=== PATIENT | male | born 1950 | race Caucasian/White ===

== ENCOUNTER 2024-03-11 13:21 | Emergency (ER) | payer MEDICARE, OTHER, SELFPAY ==
[2024-03-11] VITALS (10 sets, daily range): BP systolic 150–183; BP diastolic 56–66
--- NOTE | 2024-03-11 15:29 | ED.GENMED ---
History of Present Illness
General
Chief Complaint: Abdominal Symptoms
Source: patient
Exam Limitations: none
Time Seen by Provider: 03/11/24 15:25
Nursing documentation reviewed up to this point in time: agreed with
Travel History
Have you had any contact with someone who has COVID-19?: No
Do you have any symptoms of coronavirus? Fever > 100 degrees, chills, cough, shortness of breath, sore throat, loss of taste or smell, muscle aches, or headache?: No
History of Present Illness
History of Present Illness:
73-year-old male with past medical history of prostate cancer status post bladder and prostate resection, chronic kidney disease, hypertension, hyperlipidemia, GERD who presents emergency department today with upper abdominal pain for the past 2
days. Patient states that this started in the morning and it came on suddenly and he started to have a lot of associated nausea and vomiting. Patient also has had various episodes of diarrhea. Patient denies any fevers or chills, chest pain,
shortness of breath, dizziness, melena, hematemesis. Patient denies any recent hospitalizations. Patient states that a few weeks ago, he had stents placed in his kidneys.
Past History
Past History
ED Past Medical History: Cancer (Prostate cancer), HTN, Hypercholesterolemia and Other
ED Past Surgical History: Urological and Other
Social History
Tobacco: Former smoker
Alcohol: None
Drug: Marijuana
Personal:
Living: with family
Employment: Employed
Family History
Family History: Unable to obtain
Review of Systems
Review of Systems
All Other Systems: ROS reviewed and negative except as documented in HPI and ROS
Phy Exam
Physical Exam
Physical Exam:
General: Patient is well appearing and in no acute distress; non-toxic
Skin: Warm and dry, no rashes or lesions
Head: Normocephalic, atraumatic
Eyes: Sclera non-icteric. EOMs intact.
Cardiac: Regular rate
Peripheral Vascular: No lower extremity swelling, 2+ dorsalis pedis pulses b/l
Pulm: Normal respiratory effort
Abdomen: mild epigastric tenderness to palpation, reducible non-tender umbilical hernia, normoactive bowel sounds
Neuro: CN II-XII intact, no focal neurologic deficits.
Psychiatric: Appropriate mood and affect.
Course
Orders/Labs/Results
Orders:
Orders
03/11/24 15:14
Complete Blood Count/With Diff Urgent
Comprehensive Metabolic Panel Urgent
Lipase Urgent
03/11/24 15:43
HYDROmorphone [Dilaudid] 0.5 mg IV NOW STA
Ondansetron Injectable [Zofran] 4 mg IV NOW STA
03/11/24 16:01
CT Abd/pel Without Iv Or Oral Urgent
Comment:
Reason For Exam: periumbilical pain
03/11/24 19:41
HYDROmorphone [Dilaudid] 0.5 mg IV NOW STA
Abnormal Lab Results
03/11/24
15:14
RBC 3.78 L 10^6/uL
(4.70-6.10)
Hgb 10.4 L g/dL
(13.0-18.0)
Hct 30.3 L %
(39.0-52.0)
Plt Count 415 H 10^3/uL
(130-400)
MPV 11.0 H fL
(7.4-10.4)
Absolute Neuts (auto) 8.2 H 10^3/uL
(1.4-6.5)
Absolute Lymphs (auto) 0.8 L 10^3/uL
(1.2-3.4)
Absolute Monos (auto) 0.7 H 10^3/uL
(0.1-0.6)
Neutrophils % 84.4 H %
(42.2-75.2)
Lymphocytes % 8.0 L %
(20.5-51.1)
Carbon Dioxide 21 L mmol/L
(22-30)
BUN 46 H mg/dl
(9-20)
Creatinine 3.5 H mg/dL
(0.7-1.3)
Glucose 114 H mg/dl
(70-99)
Calcium 10.4 H mg/dl
(8.4-10.2)
Lipase 329 H U/L
(23-300)
03/11/24 15:14
03/11/24 15:14
Vital Signs
Initial and Last Documented VS:
Initial Vital Signs
Temp Pulse Resp BP Pulse Ox
97.4 F 51 18 183/64 99
03/11/24 13:23 03/11/24 13:23 03/11/24 13:23 03/11/24 13:23 03/11/24 13:23
Last Documented Vital Signs
Temp Pulse Resp BP Pulse Ox
97.4 F 40 15 160/58 99
03/11/24 13:23 03/11/24 20:45 03/11/24 20:45 03/11/24 20:00 03/11/24 13:23
MDM/Problems Addressed
Differential Diagnosis Includes:
ddx include gastritis, appendicitis, pyelonephritis, pancreatitis, small bowel obstruction
MDM/Problems Addressed:
abdominal pain
Chronic conditions affecting care: HTN, Psychiatric illness, Cancer and Other (GERD, bilateral renal stents)
*Pulse Oximetry
Patient hypoxic: no
*Critical Care Note
Total Time (30-74mins, 75-104mins- exclusive of procedures): Not Applicable
Data Reviewed
Review of Other/Old Records Reveals: Records (reviewed previous ER physician documentation) and Discharge Summary (reviewed most recent discharge summary)
Source: patient and records
Update Note
Update Note:
Care was transferred to my attending Dr. Cui at 7:30 pm. Please refer to attending addendum.
ED Attending Note
-
Portions of this chart may have been created with voice recognition software.� Occasional wrong word or��sound alike� substitutions may have occurred due to the inherent limitations of voice recognition software.
Discharge Plan
Departure
Patient Disposition: Home (Routine Discharge)
Date of Disposition: 03/11/24
Time of Disposition: 22:00
Patient with high blood pressure during this ER visit?: Yes
Discharge Problem:
Ileus, Abdominal wall hernia
Instructions: Postoperative ileus, Abdominal Hernia
Prescriptions:
No Action
trazodone 100 MG tablet
100 mg PO HS
pantoprazole 40 MG tablet,delayed release (DR/EC)
40 mg PO HS
atorvastatin 40 MG tablet
40 mg PO HS
oxycodone-acetaminophen 5-325 mg tablet
1 tab PO Q8H PRN (Reason: moderate pain)
Patient Comments:
09/17/2022: last filled 08/19/22, 90 tabs for 30 days from [facility]
melatonin 10 mg Tablet
10 mg PO HS
hydralazine 100 mg tablet
100 mg PO TID
oxybutynin chloride 10 mg tablet extended release 24hr
10 mg PO HS
amlodipine 10 MG tablet
10 mg PO HS
Otc Potassium Chloride
1 tab PO UD
Patient Comments:
11/13/22 Per patient he was told his potassium was low so he took for 2 or 3 doses last week. He would take once this week but has not taken it yet
Referrals:
Oriana Davila DO [Family Provider] -
Interventions
Interventions:
*Risk Screen - Suicide Last Done: 03/11/24 13:23
*General Assessment Last Done: 03/11/24 13:23
*Neglect/Abuse Screening Last Done: 03/11/24 13:23
ED- Fall Risk Assessment Last Done: 03/11/24 15:31
*ED COVID-19 Vaccine History Last Done: 03/11/24 13:23
ZI-Htnpdc-Hrxuhyryaw Assessment Last Done: 03/11/24 15:31
Discharge Date and Time
Print Language: PERSIAN
[2024-03-11 15:45] LABS: % Basophils 0.3 % (0-2); % Immature Granulocytes 0.4 % (0-0.5); % Monocytes 6.9 % (1.7-9.3); % Neutrophils 84.4 % (42.2-75.2); Absolute Lymphocytes 0.8 10^3/uL (1.2-3.4); Absolute Monocytes 0.7 10^3/uL (0.1-0.6); Absolute Neutrophils 8.2 10^3/uL (1.4-6.5); Hematocrit 30.3 % (39.0-52.0); Hemoglobin 10.4 g/dL (13.0-18.0); Mean Corp Hgb Conc. 34.3 g/dL (33.0-37.0); Mean Corpuscular Hgb 27.5 pg (27.0-31.0); Mean Corpuscular Volume 80.2 fL (80.0-94.0); Nucleated Red Blood Cells % 0 % (-); Platelet Count 415 10^3/uL (130-400); Red Blood Cell Count 3.78 10^6/uL (4.70-6.10); Red Cell Dist. Width 13.5 % (11.5-14.5); White Blood Cell Count 9.7 10^3/uL (4.8-10.8)
[2024-03-11 15:57] LABS: ALT (SGPT) 15 U/L (0-50); AST (SGOT) 19 U/L (17-59); Albumin 4.7 g/dl (3.5-5.0); Alkaline Phosphatase 103 U/L (38-126); Blood Urea Nitrogen 46 mg/dl (9-20); Calcium 10.4 mg/dl (8.4-10.2); Carbon Dioxide 21 mmol/L (22-30); Chloride 107 mmol/L (98-107); Glucose 114 mg/dl (70-99); Lipase 329 U/L (23-300); Potassium 3.6 mmol/L (3.5-5.1); Sodium 139 mmol/L (135-145); Total Bilirubin 0.8 mg/dl (0.2-1.3); Total Protein 7.3 g/dl (6.3-8.2); eGFR 17.78
[2024-03-11] MEDS: ZOFRAN 4 MG IV (16:22)
[2024-03-11] MEDS: DILAUDID 0.5 MG IV ×2 (16:23→19:49)
--- NOTE | 2024-03-11 21:57 | ED.ADDNOTE ---
ED Addendum
ED Addendum
ED Addendum Note:
Patient seen primarily by the PA. I evaluated the patient independently. His abdomen is soft and he has a reducible hernias that are nontender without skin changes. CT scan otherwise is reassuring. He notes that he has been taking oxycodone over
the past month for recent back surgery that he has had. Endorses constipation symptoms consistent with ileus. I instructed him that this may be contributing to his pain. He is otherwise very well-appearing and nontoxic at this time. Recommend
him to start a bowel regimen with daily Colace and MiraLAX until stools are soft.
== END 2024-03-11 22:40 | disposition home or self-care (01) ==
LOC: EMR 13:21
PROVIDERS: Emergency Medicine; EMERGENCY PHYSICIAN Emergency Medicine; FAMILY PHYSICIAN Internal Medicine
DX: K56.7 Ileus, unspecified (principal); K43.9 Ventral hernia without obstruction or gangrene; R11.2 Nausea with vomiting, unspecified; R19.7 Diarrhea, unspecified; K21.9 Gastro-esophageal reflux disease without esophagitis; I12.9 Hypertensive chronic kidney disease with stage 1 through stage 4 chronic kidney disease, or unspecified chronic kidney disease; N18.9 Chronic kidney disease, unspecified; E78.00 Pure hypercholesterolemia, unspecified; M19.90 Unspecified osteoarthritis, unspecified site; B02.9 Zoster without complications; F41.9 Anxiety disorder, unspecified; F32.A Depression, unspecified; Z85.46 Personal history of malignant neoplasm of prostate; Z87.891 Personal history of nicotine dependence; Z90.79 Acquired absence of other genital organ(s)
CPT/HCPCS: 99284; 96374; 96375; 96376; 74176; 80053; 83690; 85025

== ENCOUNTER 2024-12-08 12:43 | Emergency (ER) | payer MEDICARE, OTHER, SELFPAY ==
[2024-12-08 12:53] VITALS: BP 148/75
--- NOTE | 2024-12-08 12:54 | ED.GENMED ---
ED Provider Triage
<Alethea Lugo MD, Resident - Last Filed: 12/08/24 13:06>
-
Patient seen by provider in Triage?: Seen in Triage
74yo M recently discharged from [facility] 12/06/24 after having double nephrostomy and removal of artificial urinary sphincter and stents, who presents for abdominal pain and nausea/vomiting/diarrhea. The pain started yesterday during the day, is all
over his abdomen and radiates to back, and has been getting worse-- currently rated 7/10 on pain scale. His nausea/vomiting/diarrhea started overnight-- last able to hold down food/water yesterday, last bowel movement around 3am. He has a brandon
catheter, denies changes in quality/quantity of urine. In triage, appears uncomfortable, actively vomiting bilious emesis, tachypneic.
History of Present Illness
<Alethea Lugo MD, Resident - Last Filed: 12/08/24 13:06>
General
Chief Complaint: Abdominal Symptoms
Time Seen by Provider: 12/08/24 13:30
<Azar Cui MD - Last Filed: 12/08/24 17:35>
History of Present Illness
History of Present Illness:
Patient presents to the emergency department with bilateral back and abdominal pain. He was admitted 2 days ago to [facility] and had bilateral nephrostomy tubes placed. Notes that he also had an artificial urinary sphincter that had to be removed.
He has a Brandon catheter bilateral nephrostomies which have been draining at their baseline. He has not been able to tolerate any of his p.o. pain medications given his vomiting. Denies fevers or chills
Past History
<Alethea Lugo MD, Resident - Last Filed: 12/08/24 13:06>
Past History
ED Past Medical History: Cancer (Prostate cancer), HTN, Hypercholesterolemia and Other
ED Past Surgical History: Urological and Other
Social History
Tobacco: Former smoker
Alcohol: None
Drug: Marijuana
Personal:
Living: with family
Employment: Employed
Family History
Family History: Unable to obtain
Phy Exam
<Azar Cui MD - Last Filed: 12/08/24 17:35>
Physical Exam
Physical Exam:
GENERAL APPEARANCE: Generally ill-appearing, wearing a joyner appears pale
EYES lids/conjunctiva normal
EARS/NOSE/THROAT Mucous membranes moist, uvula midline without oral pharyngeal erythema, exudate or swelling
HEAD/NECK normocephalic atraumatic, neck is supple.
RESPIRATORY respiratory effort normal, speaks in full sentences, no accessory muscle use. Lungs clear to auscultation without rhonchi, wheezes, rales
CARDIAC Regular rate and rhythm, no edema.
ABDOMINAL bilateral nephrostomy sites are clean dry and intact. Incision along lower abdominal wall is clean. He has mild diffuse tenderness. no distension
MUSCLES/EXTREMITIES No abnormal range of motion, no swelling.
SKIN Warm, pink and dry. No rashes
NEUROLOGICAL Speech is clear and appropriate. Normal level of consciousness. 5/5 strength in all extremities.
PSYCH Normal mood and affect. Judgement/competence is appropriate
Course
<Alethea Lugo MD, Resident - Last Filed: 12/08/24 13:06>
Orders/Labs/Results
Orders:
Orders
12/08/24 12:54
Ondansetron Injectable [Zofran] 4 mg IV NOW STA
12/08/24 12:56
Abdomen Xray - 1 View [CR Abdomen - 1 View] Urgent
Comment:
Reason For Exam: vomiting, abd pain
12/08/24 12:57
Complete Blood Count/No Diff Urgent
Comprehensive Metabolic Panel Urgent
Lipase Urgent
12/08/24 12:58
HYDROmorphone [Dilaudid] 0.5 mg IV NOW STA
12/08/24 13:55
CT Abd/pel Without Iv Or Oral Urgent
Comment:
Reason For Exam: recent nephrostomy tubes, abd pain
12/08/24 13:56
HYDROmorphone [Dilaudid] 0.5 mg IV NOW STA
12/08/24 14:07
0.9% Sodium Chloride 1000 ml [Nss] 1,000 ml IV BOLUS
12/08/24 14:29
Lactate Level [Lactic Acid] Urgent
Urinalysis Reflex To Culture Urgent
Date Specimen was Collected: 12/08/24
Time Specimen was Collected: 14:25
Urine Microscopic Reflex Cult Urgent
12/08/24 16:56
Ondansetron Injectable [Zofran] 4 mg IV NOW STA
12/08/24 17:33
Metoclopramide [Reglan] 10 mg IV NOW STA
Abnormal Lab Results
12/08/24 12/08/24
12:57 14:29
RBC 3.65 L 10^6/uL
(4.70-6.10)
Hgb 10.2 L g/dL
(13.0-18.0)
Hct 30.2 L %
(39.0-52.0)
MPV 10.7 H fL
(7.4-10.4)
Carbon Dioxide 16 L mmol/L
(22-30)
BUN 55 H mg/dl
(9-20)
Creatinine 3.1 H mg/dL
(0.7-1.3)
Glucose 156 H mg/dl
(70-99)
Lipase 320 H U/L
(23-300)
Ur Occult Blood Reflex 1+ A
(Negative)
Urine RBC 30-40 A /HPF
(0-2)
Urine Bacteria (Reflex) Few A
(Negative)
Urine Albumin (Reflex) 2+ A
(Neg - Trace)
12/08/24 12:57
12/08/24 12:57
Vital Signs
Initial and Last Documented VS:
Initial Vital Signs
Temp
98.5 F
12/08/24 12:49
Last Documented Vital Signs
Temp Pulse Resp BP Pulse Ox
98.5 F 71 16 129/59 97
12/08/24 12:49 12/08/24 15:46 12/08/24 16:00 12/08/24 15:46 12/08/24 15:46
<Azar Cui MD - Last Filed: 12/08/24 17:35>
Orders/Labs/Results
Orders:
Orders
12/08/24 12:54
Ondansetron Injectable [Zofran] 4 mg IV NOW STA
12/08/24 12:56
Abdomen Xray - 1 View [CR Abdomen - 1 View] Urgent
Comment:
Reason For Exam: vomiting, abd pain
12/08/24 12:57
Complete Blood Count/No Diff Urgent
Comprehensive Metabolic Panel Urgent
Lipase Urgent
12/08/24 12:58
HYDROmorphone [Dilaudid] 0.5 mg IV NOW STA
12/08/24 13:55
CT Abd/pel Without Iv Or Oral Urgent
Comment:
Reason For Exam: recent nephrostomy tubes, abd pain
12/08/24 13:56
HYDROmorphone [Dilaudid] 0.5 mg IV NOW STA
12/08/24 14:07
0.9% Sodium Chloride 1000 ml [Nss] 1,000 ml IV BOLUS
12/08/24 14:29
Lactate Level [Lactic Acid] Urgent
Urinalysis Reflex To Culture Urgent
Date Specimen was Collected: 12/08/24
Time Specimen was Collected: 14:25
Urine Microscopic Reflex Cult Urgent
12/08/24 16:56
Ondansetron Injectable [Zofran] 4 mg IV NOW STA
12/08/24 17:33
Metoclopramide [Reglan] 10 mg IV NOW STA
Abnormal Lab Results
12/08/24 12/08/24
12:57 14:29
RBC 3.65 L 10^6/uL
(4.70-6.10)
Hgb 10.2 L g/dL
(13.0-18.0)
Hct 30.2 L %
(39.0-52.0)
MPV 10.7 H fL
(7.4-10.4)
Carbon Dioxide 16 L mmol/L
(22-30)
BUN 55 H mg/dl
(9-20)
Creatinine 3.1 H mg/dL
(0.7-1.3)
Glucose 156 H mg/dl
(70-99)
Lipase 320 H U/L
(23-300)
Ur Occult Blood Reflex 1+ A
(Negative)
Urine RBC 30-40 A /HPF
(0-2)
Urine Bacteria (Reflex) Few A
(Negative)
Urine Albumin (Reflex) 2+ A
(Neg - Trace)
12/08/24 12:57
12/08/24 12:57
Vital Signs
Initial and Last Documented VS:
Initial Vital Signs
Temp
98.5 F
12/08/24 12:49
Last Documented Vital Signs
Temp Pulse Resp BP Pulse Ox
98.5 F 71 16 129/59 97
12/08/24 12:49 12/08/24 15:46 12/08/24 16:00 12/08/24 15:46 12/08/24 15:46
<Azar Cui MD - Last Filed: 12/08/24 17:35>
*Critical Care Note
Total Time (30-74mins, 75-104mins- exclusive of procedures): Not Applicable
ED Attending Note
<Alethea Lugo MD, Resident - Last Filed: 12/08/24 13:06>
-
Portions of this chart may have been created with voice recognition software.� Occasional wrong word or��sound alike� substitutions may have occurred due to the inherent limitations of voice recognition software.
<Azar Cui MD - Last Filed: 12/08/24 17:35>
ED Attending Note
ED Attending Note:
Patient presents with abdominal pain nausea vomiting and diarrhea. Afebrile and hemodynamically stable. His labs are at his baseline with his baseline kidney function and no evidence of urinary tract infection. CT scan showing nephrostomy tubes
are in position and draining. Patient symptoms controlled with IV medications. Will give dose of Zofran and trial p.o. prior to discharge
Discharge Plan
Departure
Patient with high blood pressure during this ER visit?: Yes
Discharge Problem:
Increased nausea and vomiting
Instructions: Nausea and Vomiting, Adult (DC)
Prescriptions:
New
ondansetron 8 mg tablet,disintegrating
8 mg PO Q8H Qty: 14 0RF
No Action
trazodone 100 MG tablet
100 mg PO HS
pantoprazole 40 MG tablet,delayed release (DR/EC)
40 mg PO HS
atorvastatin 40 MG tablet
40 mg PO HS
oxycodone-acetaminophen 5-325 mg tablet
1 tab PO Q8H PRN (Reason: moderate pain)
Patient Comments:
09/17/2022: last filled 08/19/22, 90 tabs for 30 days from [id number]
melatonin 10 mg Tablet
10 mg PO HS
hydralazine 100 mg tablet
100 mg PO TID
oxybutynin chloride 10 mg tablet extended release 24hr
10 mg PO HS
amlodipine 10 MG tablet
10 mg PO HS
Otc Potassium Chloride
1 tab PO UD
Patient Comments:
11/13/22 Per patient he was told his potassium was low so he took for 2 or 3 doses last week. He would take once this week but has not taken it yet
Referrals:
Oriana Davila, DO [Family Provider] -
Activity Restrictions/Additional Instructions:
Please follow-up closely with your primary doctor as well as your urologist at [facility]. Return to the emergency department with fevers or inability to tolerate liquids as an outpatient
Interventions
Interventions:
*Risk Screen - Suicide Last Done: 12/08/24 12:49
*General Assessment Last Done: 12/08/24 12:49
*Neglect/Abuse Screening Last Done: 12/08/24 12:49
ED- Fall Risk Assessment Last Done: 12/08/24 14:35
*ED COVID-19 Vaccine History Last Done: 12/08/24 15:40
AS-Jmrtic-Fprwkmmwpx Assessment Last Done: 12/08/24 14:33
Discharge Date and Time
Print Language: UKRAINIAN
[2024-12-08] MEDS: ZOFRAN 4 MG IV ×2 (13:06→16:58)
[2024-12-08] MEDS: DILAUDID 0.5 MG IV ×2 (13:06→14:10)
[2024-12-08 13:15] LABS: Hematocrit 30.2 % (39.0-52.0); Hemoglobin 10.2 g/dL (13.0-18.0); Mean Corp Hgb Conc. 33.8 g/dL (33.0-37.0); Mean Corpuscular Hgb 27.9 pg (27.0-31.0); Mean Corpuscular Volume 82.7 fL (80.0-94.0); Mean Platelet Volume 10.7 fL (7.4-10.4); Platelet Count 286 10^3/uL (130-400); Red Blood Cell Count 3.65 10^6/uL (4.70-6.10); Red Cell Dist. Width 13.9 % (11.5-14.5); White Blood Cell Count 7.5 10^3/uL (4.8-10.8)
[2024-12-08 13:28] LABS: ALT (SGPT) 21 U/L (0-50); AST (SGOT) 30 U/L (17-59); Albumin 4.4 g/dl (3.5-5.0); Alkaline Phosphatase 85 U/L (38-126); Blood Urea Nitrogen 55 mg/dl (9-20); Carbon Dioxide 16 mmol/L (22-30); Chloride 105 mmol/L (98-107); Glucose 156 mg/dl (70-99); Lipase 320 U/L (23-300); Potassium 4.4 mmol/L (3.5-5.1); Sodium 139 mmol/L (135-145); Total Bilirubin 0.7 mg/dl (0.2-1.3); Total Protein 6.8 g/dl (6.3-8.2); eGFR 20.44
[2024-12-08] MEDS: NSS 1000 IV (14:09)
[2024-12-08 14:39] LABS: Urine Albumin 2+ (Neg - Trace); Urine Bilirubin Negative (Negative); Urine Character Slightly Cloudy (Clear); Urine Color Yellow; Urine Glucose Negative (Negative); Urine Ketone Negative (Negative); Urine Leukocyte Negative (Negative); Urine Nitrite Negative (Negative); Urine Occult Blood 1+ (Negative); Urine Urobilinogen 1+ (Neg - 1+)
[2024-12-08 14:55] LABS: Urine Bacteria Few (Negative); Urine Squamous Cell 0-2 /LPF (Few)
[2024-12-08 14:56] LABS: Urine Red Blood Cell 30-40 /HPF (0-2)
[2024-12-08 15:13] LABS: Lactic Acid 0.8 mmol/L (0.7-2.0)
[2024-12-08 15:46] VITALS: BP 129/59
[2024-12-08 17:31] VITALS: BP 113/61; BP 141/62; BP 149/77; PULSE 82; PULSE 86; PULSE 90
[2024-12-08] MEDS: REGLAN 10 MG IV (17:46)
== END 2024-12-08 18:55 | disposition home or self-care (01) ==
LOC: EMR 12:43
PROVIDERS: Student in an Organized Health Care Education/Training Program; EMERGENCY PHYSICIAN Emergency Medicine; FAMILY PHYSICIAN Internal Medicine
DX: R11.2 Nausea with vomiting, unspecified (principal); I10 Essential (primary) hypertension; Z87.891 Personal history of nicotine dependence
CPT/HCPCS: 99284; 96374; 96375 ×2; 96361 ×2; 96376 ×2; 74018; 74176; 80053; 81003; 81015; 83605; 83690; 85027

== ENCOUNTER 2024-12-14 05:40 | Emergency (ER) | payer MEDICARE, OTHER, SELFPAY ==
[2024-12-14 05:42] VITALS: BP 146/78
[2024-12-14 06:20] VITALS: BMI 28.8
--- NOTE | 2024-12-14 06:25 | ED.GENMED ---
History of Present Illness
General
Chief Complaint: Catheter/Tube Problem
Source: patient
Exam Limitations: none
Time Seen by Provider: 12/14/24 06:14
History of Present Illness
History of Present Illness:
Patient was having itching at the site of his nephrostomy tube. Tube was placed about 2 weeks ago. He accidentally cut the tube tried to remove the tape. No systemic symptoms
Past History
Past History
ED Past Medical History: Cancer (Prostate cancer), HTN, Hypercholesterolemia and Other
ED Past Surgical History: Urological and Other
Social History
Tobacco: Former smoker
Alcohol: None
Drug: Marijuana
Personal:
Living: with family
Employment: Employed
Family History
Family History: Unable to obtain
Review of Systems
Review of Systems
All Other Systems: Not applicable
Constitutional: Denies fever or chills
Phy Exam
Physical Exam
Physical Exam:
GENERAL: Alert and oriented in no apparent distress
CARDIAC: Regular rate and rhythm without any obvious murmurs.
LUNGS: Clear breath sounds,normal
ABDOMEN: Soft, without focal tenderness or distention. Left nephrostomy tube in place. Right nephrostomy tube in place with suture line at the skin. However the tube was cut distally
NEUROLOGICAL: Alert and oriented , grossly non-focal
SKIN: Warm and dry, no rash or lesion, no discoloration, skin intact.
PSYCH: Normal and appropriate interaction.
Course
Orders/Labs/Results
Orders:
Orders
12/14/24 07:03
Consult Interventional Radiology [IRAD CONSULT] Urgent
Consulting Provider: Ozzie Lin
Was physician already notified: Yes
Reason for Consult/Procedure: cut nephrostomy tube
Acknowledgement that appropriate orders are entered: Yes
Vital Signs
Initial and Last Documented VS:
Initial Vital Signs
Temp Pulse Resp BP Pulse Ox
97.9 F 77 18 146/78 97
12/14/24 05:42 12/14/24 05:42 12/14/24 05:42 12/14/24 05:42 12/14/24 05:42
Last Documented Vital Signs
Temp Pulse Resp BP Pulse Ox
97.9 F 64 16 122/57 98
12/14/24 05:42 12/14/24 09:32 12/14/24 09:32 12/14/24 09:32 12/14/24 09:32
*Critical Care Note
Total Time (30-74mins, 75-104mins- exclusive of procedures): Not Applicable
ED Attending Note
-
Portions of this chart may have been created with voice recognition software.� Occasional wrong word or��sound alike� substitutions may have occurred due to the inherent limitations of voice recognition software.
Discharge Plan
Departure
Prescriptions:
No Action
trazodone 100 MG tablet
100 mg PO HS
pantoprazole 40 MG tablet,delayed release (DR/EC)
40 mg PO HS
atorvastatin 40 MG tablet
40 mg PO HS
oxycodone-acetaminophen 5-325 mg tablet
1 tab PO Q8H PRN (Reason: moderate pain)
Patient Comments:
09/17/2022: last filled 08/19/22, 90 tabs for 30 days from [facility]
melatonin 10 mg Tablet
10 mg PO HS
hydralazine 100 mg tablet
100 mg PO TID
oxybutynin chloride 10 mg tablet extended release 24hr
10 mg PO HS
amlodipine 10 MG tablet
10 mg PO HS
Otc Potassium Chloride
1 tab PO UD
Patient Comments:
11/13/22 Per patient he was told his potassium was low so he took for 2 or 3 doses last week. He would take once this week but has not taken it yet
ondansetron 8 mg tablet,disintegrating
8 mg PO Q8H Qty: 14 0RF
Referrals:
Oriana Davila, [Family Provider] -
Interventions
Interventions:
*Risk Screen - Suicide Last Done: 12/14/24 05:42
*General Assessment Last Done: 12/14/24 05:42
*Neglect/Abuse Screening Last Done: 12/14/24 06:03
*ED COVID-19 Vaccine History Last Done: 12/14/24 06:03
QY-Ijkrpf-Axsbutxjkg Assessment Last Done: 12/14/24 06:20
ED-Male Genitourinary Assessment Last Done: 12/14/24 06:20
Discharge Date and Time
Print Language: LATVIAN
[2024-12-14 09:32] VITALS: BP 122/57
[2024-12-14 12:50] VITALS: BP 128/74
[2024-12-14 12:56] VITALS: BP 149/60; BP_SYST 56
[2024-12-14 15:13] VITALS: BP 148/79
== END 2024-12-14 16:01 | disposition home or self-care (01) ==
LOC: EMR 05:40
PROVIDERS: CONSULT PHYSICIAN Radiology Vascular & Interventional Radiology; EMERGENCY PHYSICIAN Emergency Medicine; FAMILY PHYSICIAN Internal Medicine
DX: Z43.6 Encounter for attention to other artificial openings of urinary tract (principal); I10 Essential (primary) hypertension; E78.00 Pure hypercholesterolemia, unspecified; Z85.46 Personal history of malignant neoplasm of prostate; Z87.891 Personal history of nicotine dependence
CPT/HCPCS: 99285; 50435; 99152; 99153; C1729; C1769

== ENCOUNTER → 2025-04-17 13:09 | Outpatient (REF) | payer MEDICARE, OTHER, SELFPAY ==
[2025-04-17 13:36] VITALS: BP 148/72; BP_SYST 68
== END ==
LOC: RADI 13:09
PROVIDERS: ATTENDING PHYSICIAN Physician Assistant; FAMILY PHYSICIAN Internal Medicine
DX: Z43.6 Encounter for attention to other artificial openings of urinary tract (principal); N13.5 Crossing vessel and stricture of ureter without hydronephrosis
CPT/HCPCS: 50435; C1729; C1769

== ENCOUNTER → 2025-07-18 12:38 | Outpatient (REF) | payer MEDICARE, OTHER, SELFPAY ==
[2025-07-18 12:58] VITALS: BP 160/54; BP_SYST 53
== END ==
LOC: RADI 12:38
PROVIDERS: ATTENDING PHYSICIAN Physician Assistant; FAMILY PHYSICIAN Internal Medicine
DX: Z43.6 Encounter for attention to other artificial openings of urinary tract (principal); N13.1 Hydronephrosis with ureteral stricture, not elsewhere classified
CPT/HCPCS: 50435; C1729; C1769

== ENCOUNTER → 2025-10-17 12:23 | Outpatient (REF) | payer MEDICARE, OTHER, SELFPAY ==
[2025-10-17 12:41] VITALS: BP 161/67; BP_SYST 69
== END ==
LOC: RADI 12:23
PROVIDERS: ATTENDING PHYSICIAN Radiology Diagnostic Radiology; FAMILY PHYSICIAN Nurse Practitioner; REFERRING PHYSICIAN Specialist
DX: Z43.6 Encounter for attention to other artificial openings of urinary tract (principal); N13.1 Hydronephrosis with ureteral stricture, not elsewhere classified
CPT/HCPCS: 50435; 87077; 87086; C1729; C1769